=== PATIENT | female | born 1955 | race Caucasian/White ===

== ENCOUNTER 2017-02-21 15:50 | Emergency (ER) | payer MEDICAID, OTHER ==
[~2017-02-21] VITALS: Ht 157.5 cm; Wt 79.0 kg
[~2017-02-21 15:50] MED LIST: CIPR500T4 PO; DICL50 PO
[2017-02-21 16:04] VITALS: BP 127/80; PULSE 75; RESP 16; TEMP 98.7; O2SAT 97
[2017-02-21 17:44] VITALS: BP 170/99; PULSE 71; RESP 18; O2SAT 99
--- NOTE | 2017-02-21 18:10 | PD ---
HPI Chief Complaint: Abdominal Pain Time Seen by Provider: 17:54 Travel History International Travel<30 days: No Contact w/Intl Traveler<30days: No Traveled to known affect area: No History of Present Illness HPI 61-year-old female presents to emergency Department with complaint of left lower quadrant abdominal pain that started yesterday. After physical exam she states now her abdominal pain is on the right. She reports nausea without vomiting. Denies fevers. Denies diarrhea or constipation. Reports dysuria, urinary frequency. Denies hematuria. Denies history of abdominal surgeries. No known relieving or aggravating factors. Has not taken any medications or tried any treatment to alleviate her symptoms. Rates pain 10/10. Stabbing sensation. Reports frequent alcohol use. History of diabetes, hypertension, pancreatitis. No primary care provider. No known allergies. Has no other medical complaints. No other modifying factors or associated signs and symptoms. PFSH Past Medical History Depression: Yes Diabetes: Yes Patient Takes Glucophage: No Diminished Hearing: No Hypertension: Yes ?: Not : 2 Para: 2 Tubal Ligation: Yes Past Surgical History Hysterectomy: Yes Social History Alcohol Use: No Tobacco Use: No Substance Use: No Allergies-Medications (Allergen,Severity, Reaction): Coded Allergies: No Known Allergies (Unverified , 05/09/15) Reported Meds & Prescriptions Reported Meds & Active Scripts Active Bactrim DS (Sulfamethoxazole-Trimethoprim) 800-160 Mg Tab 1 Tab PO BID Voltaren (Diclofenac Sodium) 50 Mg Tabec 50 Mg PO TID Cipro (Ciprofloxacin HCl) 500 Mg Tab 500 Mg PO BID 7 Days Review of Systems Except as stated in HPI: all other systems reviewed are Neg Physical Exam Narrative GENERAL: Well-nourished, well-developed female patient, in no acute distress; afebrile; disheveled SKIN: Warm and dry. HEAD: Atraumatic. Normocephalic. EYES: Pupils equal and round. No scleral icterus. No injection or drainage. ENT: Mucosa pink and moist. Airway patent. NECK: Trachea midline. CARDIOVASCULAR: Regular rate and rhythm. No murmur appreciated. RESPIRATORY: No accessory muscle use. Clear to auscultation. Breath sounds equal bilaterally. GASTROINTESTINAL: Abdomen soft, tenderness on palpation to RLQ and LLQ, nondistended. Hepatic and splenic margins not palpable. Bowel sounds are active 4 quadrants. Nonrigid. No rebound tenderness. No guarding. BACK: No CVA tenderness. MUSCULOSKELETAL: No obvious deformities. No clubbing. No cyanosis. No edema. NEUROLOGICAL: Awake and alert. Oriented 3. No obvious cranial nerve deficits. Motor grossly within normal limits. Normal speech. PSYCHIATRIC: Appropriate mood and affect; insight and judgment normal. Data Data Last Documented VS Vital Signs Date Time Temp Pulse Resp B/P (MAP) Pulse Ox O2 Delivery O2 Flow Rate FiO2 02/21/17 23:24 02/21/17 21:03 92 Room Air 02/21/17 17:44 71 18 02/21/17 16:04 98.7 Orders Orders Complete Blood Count With Diff (02/21/17 18:03) Comprehensive Metabolic Panel (02/21/17 18:03) Lipase (02/21/17 18:03) Prothrombin Time / Inr (Pt) (02/21/17 18:03) Act Partial Throm Time (Ptt) (02/21/17 18:03) Urinalysis - C+S If Indicated (02/21/17 18:03) Iv Access Insert/Monitor (02/21/17 18:03) Ecg Monitoring (02/21/17 18:03) Oximetry (02/21/17 18:03) Ondansetron Inj (Zofran Inj) (02/21/17 18:15) Sodium Chloride 0.9% Flush (Ns Flush) (02/21/17 18:15) Ketorolac Inj (Toradol Inj) (02/21/17 18:15) Ct Abd/Pel W/O Iv Contrast (02/21/17 18:03) Ed Discharge Order (02/21/17 23:19) Labs Laboratory Tests Test 02/21/17 18:15 02/21/17 20:00 02/21/17 20:15 White Blood Count 7.2 TH/MM3 Red Blood Count 4.20 MIL/MM3 Hemoglobin 11.7 GM/DL Hematocrit 34.6 % Mean Corpuscular Volume 82.4 FL Mean Corpuscular Hemoglobin 27.8 PG Mean Corpuscular Hemoglobin Concent 33.8 % Red Cell Distribution Width 17.0 % Platelet Count 221 TH/MM3 Mean Platelet Volume 9.2 FL Neutrophils (%) (Auto) 53.7 % Lymphocytes (%) (Auto) 33.5 % Monocytes (%) (Auto) 8.7 % Eosinophils (%) (Auto) 2.7 % Basophils (%) (Auto) 1.4 % Neutrophils # (Auto) 3.9 TH/MM3 Lymphocytes # (Auto) 2.4 TH/MM3 Monocytes # (Auto) 0.6 TH/MM3 Eosinophils # (Auto) 0.2 TH/MM3 Basophils # (Auto) 0.1 TH/MM3 CBC Comment DIFF FINAL Differential Comment Urine Color YELLOW Urine Turbidity HAZY Urine pH 5.0 Urine Specific [place] 1.018 Urine Protein 30 mg/dL Urine Glucose (UA) NEG mg/dL Urine Ketones NEG mg/dL Urine Occult Blood NEG Urine Nitrite NEG Urine Bilirubin NEG Urine Urobilinogen LESS THAN 2.0 MG/DL Urine Leukocyte Esterase LARGE Urine RBC 3 /hpf Urine WBC 7 /hpf Urine Squamous Epithelial Cells 11 /hpf Urine Bacteria RARE /hpf Urine Mucus FEW /lpf Microscopic Urinalysis Comment CULT NOT INDICATED Prothrombin Time 10.4 SEC Prothromb Time International Ratio 1.0 RATIO Activated Partial Thromboplast Time 21.9 SEC Blood Urea Nitrogen 43 MG/DL Creatinine 2.34 MG/DL Random Glucose 129 MG/DL Total Protein 6.8 GM/DL Albumin 3.3 GM/DL Calcium Level 8.4 MG/DL Alkaline Phosphatase 89 U/L Aspartate Amino Transf (AST/SGOT) 13 U/L Alanine Aminotransferase (ALT/SGPT) 16 U/L Total Bilirubin 0.3 MG/DL Sodium Level 140 MEQ/L Potassium Level 4.6 MEQ/L Chloride Level 104 MEQ/L Carbon Dioxide Level 29.0 MEQ/L Anion Gap 7 MEQ/L Estimat Glomerular Filtration Rate 21 ML/MIN Lipase 111 U/L [facility] Medical Decision Making Medical Screen Exam Complete: Yes Emergency Medical Condition: Yes Medical Record Reviewed: Yes Differential Diagnosis Diverticulitis, appendicitis, urinary tract infection, kidney stones Narrative Course 61-year-old female presents with left lower quadrant and right lower quadrant abdominal pain. I discussed the patient with Dr. Ashby and he agrees with plan of care. IV, CBC, CMP, lipase, urinalysis, CT abdomen/pelvis, Toradol, Zofran ordered. 1900: Dr. Ashby assumed patient care at this time. See his note for final patient disposition. Scripts Sulfamethoxazole-Trimethoprim (Bactrim DS) 800-160 Mg Tab 1 TAB PO BID for Infection, #6 TAB 0 Refills Prov: Oleg Ashby MD 02/21/17 Cora Borrego Feb 21, 2017 18:10
[2017-02-21] MEDS ORDERED: SODIUM CHLORIDE 0.9% FLUSH 10 ML FLUSH IV FLUSH PRN (18:15)
[2017-02-21] MEDS ORDERED: ONDANSETRON HCL 4 MG/2 ML VIAL IVP ONE (18:15)
[2017-02-21] MEDS ORDERED: KETOROLAC TROMETHAMINE 30 MG/ML (IVP) VIAL IV PUSH ONE (18:15)
[2017-02-21 19:10] LABS: AUTOMATED NEUTROPHIL # 3.9 TH/MM3 (1.8-7.7); BASOPHIL # 0.1 TH/MM3 (0-0.2); BASOPHIL % 1.4 % (0.0-2.0); EOSINOPHIL # 0.2 TH/MM3 (0-0.4); EOSINOPHIL % 2.7 % (0.0-4.0); HEMATOCRIT 34.6 % (35.0-46.0); HEMOGLOBIN 11.7 GM/DL (11.6-15.3); LYMPH % 33.5 % (9.0-44.0); LYMPHOCYTE # 2.4 TH/MM3 (1.0-4.8); MEAN CELL VOLUME 82.4 FL (80.0-100.0); MEAN CORPUSCULAR HEMOGLOBIN 27.8 PG (27.0-34.0); MEAN CORPUSCULAR HGB CONC 33.8 % (32.0-36.0); MEAN PLATELET VOLUME 9.2 FL (7.0-11.0); MONO % 8.7 % (0.0-8.0); MONOCYTE # 0.6 TH/MM3 (0-0.9); NEUT % 53.7 % (16.0-70.0); PLATELET COUNT 221 TH/MM3 (150-450); WHITE BLOOD COUNT 7.2 TH/MM3 (4.0-11.0)
--- NOTE | 2017-02-21 19:33 | PD ---
Physical Exam Time Seen by Provider: 19:33 Narrative Please refer to previous providers documentation for details surrounding the patient's current visit. Data Data Last Documented VS Vital Signs Date Time Temp Pulse Resp B/P (MAP) Pulse Ox O2 Delivery O2 Flow Rate FiO2 02/21/17 23:24 02/21/17 21:03 92 Room Air 02/21/17 17:44 71 18 02/21/17 16:04 98.7 Orders Orders Complete Blood Count With Diff (02/21/17 18:03) Comprehensive Metabolic Panel (02/21/17 18:03) Lipase (02/21/17 18:03) Prothrombin Time / Inr (Pt) (02/21/17 18:03) Act Partial Throm Time (Ptt) (02/21/17 18:03) Urinalysis - C+S If Indicated (02/21/17 18:03) Iv Access Insert/Monitor (02/21/17 18:03) Ecg Monitoring (02/21/17 18:03) Oximetry (02/21/17 18:03) Ondansetron Inj (Zofran Inj) (02/21/17 18:15) Sodium Chloride 0.9% Flush (Ns Flush) (02/21/17 18:15) Ketorolac Inj (Toradol Inj) (02/21/17 18:15) Ct Abd/Pel W/O Iv Contrast (02/21/17 18:03) Ed Discharge Order (02/21/17 23:19) Labs Laboratory Tests Test 02/21/17 18:15 02/21/17 20:00 02/21/17 20:15 White Blood Count 7.2 TH/MM3 Red Blood Count 4.20 MIL/MM3 Hemoglobin 11.7 GM/DL Hematocrit 34.6 % Mean Corpuscular Volume 82.4 FL Mean Corpuscular Hemoglobin 27.8 PG Mean Corpuscular Hemoglobin Concent 33.8 % Red Cell Distribution Width 17.0 % Platelet Count 221 TH/MM3 Mean Platelet Volume 9.2 FL Neutrophils (%) (Auto) 53.7 % Lymphocytes (%) (Auto) 33.5 % Monocytes (%) (Auto) 8.7 % Eosinophils (%) (Auto) 2.7 % Basophils (%) (Auto) 1.4 % Neutrophils # (Auto) 3.9 TH/MM3 Lymphocytes # (Auto) 2.4 TH/MM3 Monocytes # (Auto) 0.6 TH/MM3 Eosinophils # (Auto) 0.2 TH/MM3 Basophils # (Auto) 0.1 TH/MM3 CBC Comment DIFF FINAL Differential Comment Urine Color YELLOW Urine Turbidity HAZY Urine pH 5.0 Urine Specific [place] 1.018 Urine Protein 30 mg/dL Urine Glucose (UA) NEG mg/dL Urine Ketones NEG mg/dL Urine Occult Blood NEG Urine Nitrite NEG Urine Bilirubin NEG Urine Urobilinogen LESS THAN 2.0 MG/DL Urine Leukocyte Esterase LARGE Urine RBC 3 /hpf Urine WBC 7 /hpf Urine Squamous Epithelial Cells 11 /hpf Urine Bacteria RARE /hpf Urine Mucus FEW /lpf Microscopic Urinalysis Comment CULT NOT INDICATED Prothrombin Time 10.4 SEC Prothromb Time International Ratio 1.0 RATIO Activated Partial Thromboplast Time 21.9 SEC Blood Urea Nitrogen 43 MG/DL Creatinine 2.34 MG/DL Random Glucose 129 MG/DL Total Protein 6.8 GM/DL Albumin 3.3 GM/DL Calcium Level 8.4 MG/DL Alkaline Phosphatase 89 U/L Aspartate Amino Transf (AST/SGOT) 13 U/L Alanine Aminotransferase (ALT/SGPT) 16 U/L Total Bilirubin 0.3 MG/DL Sodium Level 140 MEQ/L Potassium Level 4.6 MEQ/L Chloride Level 104 MEQ/L Carbon Dioxide Level 29.0 MEQ/L Anion Gap 7 MEQ/L Estimat Glomerular Filtration Rate 21 ML/MIN Lipase 111 U/L [facility] Medical Record Reviewed: Yes Supervised Visit with ALE: No Narrative Course Patient was signed out to me with lab work and CT imaging pending. She is lying in the bed comfortably. Scripts Sulfamethoxazole-Trimethoprim (Bactrim DS) 800-160 Mg Tab 1 TAB PO BID for Infection, #6 TAB 0 Refills Prov: Oleg Ashby MD 02/21/17 Condition: Stable Monica Aguilar FAIZAN Feb 21, 2017 19:33
[2017-02-21 21:03] VITALS: O2SAT 92
[2017-02-21 21:08] LABS: PROTHROMBIN TIME - PATIENT 10.4 SEC (9.8-11.6)
[2017-02-21 21:09] LABS: ALBUMIN 3.3 GM/DL (3.4-5.0); BLOOD UREA NITROGEN 43 MG/DL (7-18); CALCIUM 8.4 MG/DL (8.5-10.1); CHLORIDE 104 MEQ/L (98-107); CREATININE 2.34 MG/DL (0.50-1.00); GLOMERULAR FILTRATION RATE 21 ML/MIN (>89); GLUCOSE,RANDOM 129 MG/DL (74-106); LIPASE 111 U/L (73-393); SODIUM (NA) 140 MEQ/L (136-145)
[2017-02-21 21:10] LABS: ALT (GPT) 16 U/L (10-53); AST (GOT) 13 U/L (15-37)
[2017-02-21 21:12] LABS: ALKALINE PHOSPHATASE 89 U/L (45-117); TOTAL BILIRUBIN ADULT 0.3 MG/DL (0.2-1.0); TOTAL PROTEIN 6.8 GM/DL (6.4-8.2)
--- NOTE | 2017-02-21 22:13 | RADRPT ---
EXAM DATE/TIME: 02/21/2017 21:25 [place] COMPARISON: No previous studies available for comparison. INDICATIONS : Abdominal pain. ORAL CONTRAST: No oral contrast ingested. RADIATION DOSE: 11.59 CTDIvol (mGy) MEDICAL HISTORY : Hypertension. SURGICAL HISTORY : Tubal ligation. Hysterectomy. ENCOUNTER: Initial ACUITY: 1 day PAIN SCALE: 6/10 LOCATION: Abdomen TECHNIQUE: Volumetric scanning of the abdomen and pelvis was performed. Using automated exposure control and ad justment of the mA and/or kV according to patient size, radiation dose was kept as low as reasonably achievable to obtain optimal diagnostic quality images. DICOM format image data is available electro nically for review and comparison. FINDINGS: There is dependent atelectasis in the lungs. No acute findings in the lower, adrenals, spleen or panc reas. No calcified gallstones. There is a calcified 4.6 cm mass exophytic off the left kidney. Calcifications are mostly midline and curvilinear. 3.2 cm exophytic cyst lower pole right kidney. Small nonobstructing bilateral renal herman cifications. No free fluid. No bowel obstruction. No adenopathy. Previous bowel surgery in the right lower quadran t. Bladder unremarkable. No acute bony abnormalities. CONCLUSION: 1. Partially calcified 4.6 cm mass exophytic off upper pole left kidney. This is probably benign but could be further evaluated with MRI. 2. 3.2 cm cyst exophytic off lower pole right kidney. Nonobstructing small bilateral renal calcificat ions. 3. Postoperative bowel surgery in the right lower quadrant 4. No obstruction, free fluid or free air. Guanako Adams MD on February 21, 2017 at 22:06 Board Certified Radiologist. This report was verified electronically.
--- NOTE | 2017-02-21 22:16 | PD ---
Data Data Last Documented VS Vital Signs Date Time Temp Pulse Resp B/P (MAP) Pulse Ox O2 Delivery O2 Flow Rate FiO2 02/21/17 23:24 02/21/17 21:03 92 Room Air 02/21/17 17:44 71 18 02/21/17 16:04 98.7 Orders Orders Complete Blood Count With Diff (02/21/17 18:03) Comprehensive Metabolic Panel (02/21/17 18:03) Lipase (02/21/17 18:03) Prothrombin Time / Inr (Pt) (02/21/17 18:03) Act Partial Throm Time (Ptt) (02/21/17 18:03) Urinalysis - C+S If Indicated (02/21/17 18:03) Iv Access Insert/Monitor (02/21/17 18:03) Ecg Monitoring (02/21/17 18:03) Oximetry (02/21/17 18:03) Ondansetron Inj (Zofran Inj) (02/21/17 18:15) Sodium Chloride 0.9% Flush (Ns Flush) (02/21/17 18:15) Ketorolac Inj (Toradol Inj) (02/21/17 18:15) Ct Abd/Pel W/O Iv Contrast (02/21/17 18:03) Ed Discharge Order (02/21/17 23:19) Labs Laboratory Tests Test 02/21/17 18:15 02/21/17 20:00 02/21/17 20:15 White Blood Count 7.2 TH/MM3 Red Blood Count 4.20 MIL/MM3 Hemoglobin 11.7 GM/DL Hematocrit 34.6 % Mean Corpuscular Volume 82.4 FL Mean Corpuscular Hemoglobin 27.8 PG Mean Corpuscular Hemoglobin Concent 33.8 % Red Cell Distribution Width 17.0 % Platelet Count 221 TH/MM3 Mean Platelet Volume 9.2 FL Neutrophils (%) (Auto) 53.7 % Lymphocytes (%) (Auto) 33.5 % Monocytes (%) (Auto) 8.7 % Eosinophils (%) (Auto) 2.7 % Basophils (%) (Auto) 1.4 % Neutrophils # (Auto) 3.9 TH/MM3 Lymphocytes # (Auto) 2.4 TH/MM3 Monocytes # (Auto) 0.6 TH/MM3 Eosinophils # (Auto) 0.2 TH/MM3 Basophils # (Auto) 0.1 TH/MM3 CBC Comment DIFF FINAL Differential Comment Urine Color YELLOW Urine Turbidity HAZY Urine pH 5.0 Urine Specific [place] 1.018 Urine Protein 30 mg/dL Urine Glucose (UA) NEG mg/dL Urine Ketones NEG mg/dL Urine Occult Blood NEG Urine Nitrite NEG Urine Bilirubin NEG Urine Urobilinogen LESS THAN 2.0 MG/DL Urine Leukocyte Esterase LARGE Urine RBC 3 /hpf Urine WBC 7 /hpf Urine Squamous Epithelial Cells 11 /hpf Urine Bacteria RARE /hpf Urine Mucus FEW /lpf Microscopic Urinalysis Comment CULT NOT INDICATED Prothrombin Time 10.4 SEC Prothromb Time International Ratio 1.0 RATIO Activated Partial Thromboplast Time 21.9 SEC Blood Urea Nitrogen 43 MG/DL Creatinine 2.34 MG/DL Random Glucose 129 MG/DL Total Protein 6.8 GM/DL Albumin 3.3 GM/DL Calcium Level 8.4 MG/DL Alkaline Phosphatase 89 U/L Aspartate Amino Transf (AST/SGOT) 13 U/L Alanine Aminotransferase (ALT/SGPT) 16 U/L Total Bilirubin 0.3 MG/DL Sodium Level 140 MEQ/L Potassium Level 4.6 MEQ/L Chloride Level 104 MEQ/L Carbon Dioxide Level 29.0 MEQ/L Anion Gap 7 MEQ/L Estimat Glomerular Filtration Rate 21 ML/MIN Lipase 111 U/L [facility] Medical Record Reviewed: Yes Supervised Visit with ALE: Yes Narrative Course CBC & BMP Diagram 02/21/17 18:15 02/21/17 20:15 Total Protein 6.8, Albumin 3.3 L, Calcium Level 8.4 L, Alkaline Phosphatase 89, Aspartate Amino Transf (AST/SGOT) 13 L, Alanine Aminotransferase (ALT/SGPT) 16, Total Bilirubin 0.3 Urinalysis shows UTI Last Impressions Abdomen/Pelvis CT 02/21/17 1803 Signed Impressions: Service Date/Time: Tuesday, February 21, 2017 21:25 - CONCLUSION: 1. Partially calcified 4.6 cm mass exophytic off upper pole left kidney. This is probably benign but could be further evaluated with MRI. 2. 3.2 cm cyst exophytic off lower pole right kidney. Nonobstructing small bilateral renal calcifications. 3. Postoperative bowel surgery in the right lower quadrant 4. No obstruction, free fluid or free air. Guanako Adams MD At the time of reassessment, 11:10 PM patient reports no place to go having moved here from [place]. She states she is moving home in about 3 weeks. We discussed her diagnosis of UTI. Bactrim prescribed. Based on the workup done here, quite thorough, the patient has no medical or surgical emergency is safe for discharge. Vital Signs Date Time Temp Pulse Resp B/P (MAP) Pulse Ox O2 Delivery O2 Flow Rate FiO2 02/21/17 23:24 02/21/17 21:03 92 Room Air 02/21/17 17:44 71 18 170/99 (122) 99 Room Air 02/21/17 16:04 98.7 75 16 127/80 (96) 97 Room Air Diagnosis Primary Impression: Abdominal pain Qualified Codes: R10.9 - Unspecified abdominal pain Additional Impression: Cystitis Med/Other Pt SpecificInfo: Prescription(s) given Scripts Sulfamethoxazole-Trimethoprim (Bactrim DS) 800-160 Mg Tab 1 TAB PO BID for Infection, #6 TAB 0 Refills Prov: Oleg Ashby MD 02/21/17 Disposition: 01 DISCHARGE HOME Condition: Stable Oleg Ashby MD Feb 21, 2017 22:16
[2017-02-21 22:53] LABS: BACTERIA, URINE RARE /hpf; BILIRUBIN, URINE NEG (NEG); BLOOD, URINE NEG (NEG); GLUCOSE,URINE NEG (NEG); KETONE, URINE NEG (NEG); MUCUS URINE FEW /lpf (OCC); NITRITE,URINE NEG (NEG); SQUAMOUS EPITHELIAL CELL URINE 11 /hpf (0-5); URINE COLOR YELLOW (YELLW/STRAW); URINE LEUKOCYTE ESTERASE LARGE (NEG)
[2017-02-21] MEDS ORDERED: BACT800T5 PO (23:37)
== END 2017-02-21 23:51 | disposition home or self-care (01) ==
LOC: NEPD 15:50
DX: R10.32 Left lower quadrant pain (principal); N30.90 Cystitis, unspecified without hematuria; K85.90 Acute pancreatitis without necrosis or infection, unspecified; I10 Essential (primary) hypertension; E11.9 Type 2 diabetes mellitus without complications
CPT/HCPCS: 74176; 80053; 81001; 83690; 85025; 85610; 85730; 96374; 96375; 99285; J1885; J2405

== ENCOUNTER 2017-04-07 15:21 | Emergency (ER) | payer MEDICAID ==
[~2017-04-07 15:21] MED LIST changes: +BACT800T5 PO
[2017-04-07 15:27] VITALS: BP 156/87; PULSE 68; RESP 18; TEMP 98.3; O2SAT 99
--- NOTE | 2017-04-07 15:57 | PD ---
HPI Chief Complaint: Abdominal Pain Time Seen by Provider: 15:57 Travel History International Travel<30 days: No Contact w/Intl Traveler<30days: No Traveled to known affect area: No History of Present Illness HPI 61-year-old female presents emergency department with sudden onset abdominal pain yesterday with nausea, vomiting, and diarrhea. She now continues to have abdominal pain in the left lower quadrant. She is felt feverish but is unsure if she has had a fever. She denies urinary symptoms. She denies vaginal discharge. Patient has no history of appendicitis or gallbladder disease in the past. No previous history of diverticulitis. She states her pain is worsened today, and she continues to feel nauseous. She has no known drug allergies PFSH Past Medical History Depression: Yes Diabetes: Yes Patient Takes Glucophage: No Diminished Hearing: No Hypertension: Yes ?: Not : 2 Para: 2 Tubal Ligation: Yes Past Surgical History Hysterectomy: Yes Social History Alcohol Use: No Tobacco Use: No Substance Use: No Allergies-Medications (Allergen,Severity, Reaction): Coded Allergies: Iodinated Contrast- Oral and IV Dye (Verified Allergy, Severe, 04/07/17) No Known Allergies (Unverified Allergy, Unknown, 04/07/17) Reported Meds & Prescriptions Reported Meds & Active Scripts Active Review of Systems Except as stated in HPI: all other systems reviewed are Neg General / Constitutional: Positive: Fever, Chills Eyes: No: Visual changes HENT: No: Headaches, Vertigo, Lightheadedness, Sore Throat, Rhinitis, Congestion, Nosebleed, Neck Stiffness, Neck Pain, Dental Difficulties, Earache Cardiovascular: No: Chest Pain or Discomfort Respiratory: No: Cough, Shortness of Breath Gastrointestinal: Positive: Nausea, Vomiting, Diarrhea, Abdominal Pain, No: Constipation, Indigestion, Dysphagia, Loss of Appetite Genitourinary: No: Urgency, Frequency, Dysuria, Discharge Musculoskeletal: No: Pain Skin: No Rash Neurologic: No: Weakness Psychiatric: No: Depression Endocrine: No: Polydipsia Hematologic/Lymphatic: No: Easy Bruising Physical Exam Narrative GENERAL: Patient appears in mild to moderate distress SKIN: Warm and dry. Normal color. Normal turgor HEAD: Atraumatic. Normocephalic. EYES: Pupils equal and round. No scleral icterus. No injection or drainage. ENT: No nasal bleeding or discharge. Mucous membranes pink and moist. Pharynx is clear. NECK: Trachea midline. Supple and nontender CARDIOVASCULAR: Regular rate and rhythm. RESPIRATORY: No accessory muscle use. Clear to auscultation. Breath sounds equal bilaterally. GASTROINTESTINAL: Abdomen soft, mild to moderate point tenderness in the left lower quadrant with mild rebound, nondistended. Bowel sounds are somewhat diminished in all quadrants. Hepatic and splenic margins not palpable. No CVA tenderness. MUSCULOSKELETAL: Extremities without clubbing, cyanosis, or edema. No obvious deformities. NEUROLOGICAL: Awake and alert. No obvious cranial nerve deficits. Motor grossly within normal limits. Five out of 5 muscle strength in the arms and legs. Normal speech. PSYCHIATRIC: Appropriate mood and affect; insight and judgment normal. Data Data Last Documented VS Vital Signs Date Time Temp Pulse Resp B/P (MAP) Pulse Ox O2 Delivery O2 Flow Rate FiO2 04/07/17 18:01 96 Room Air 04/07/17 17:57 98.4 67 20 Orders Orders Complete Blood Count With Diff (04/07/17 16:06) Comprehensive Metabolic Panel (04/07/17 16:06) Lipase (04/07/17 16:06) Lactic Acid (04/07/17 16:06) Prothrombin Time / Inr (Pt) (04/07/17 16:06) Act Partial Throm Time (Ptt) (04/07/17 16:06) Urinalysis - C+S If Indicated (04/07/17 16:06) Iv Access Insert/Monitor (04/07/17 16:06) Ecg Monitoring (04/07/17 16:06) Oximetry (04/07/17 16:06) Morphine Inj (Morphine Inj) (04/07/17 16:15) Ondansetron Inj (Zofran Inj) (04/07/17 16:15) Sodium Chlor 0.9% 1000 Ml Inj (Ns 1000 M (04/07/17 16:06) Sodium Chloride 0.9% Flush (Ns Flush) (04/07/17 16:15) Ct Abd/Pel W/O Iv Contrast (04/07/17 18:26) Labs Laboratory Tests Test 04/07/17 16:50 White Blood Count 6.4 TH/MM3 Red Blood Count 3.91 MIL/MM3 Hemoglobin 10.9 GM/DL Hematocrit 31.9 % Mean Corpuscular Volume 81.6 FL Mean Corpuscular Hemoglobin 27.8 PG Mean Corpuscular Hemoglobin Concent 34.1 % Red Cell Distribution Width 15.1 % Platelet Count 165 TH/MM3 Mean Platelet Volume 9.0 FL Neutrophils (%) (Auto) 57.4 % Lymphocytes (%) (Auto) 33.5 % Monocytes (%) (Auto) 6.5 % Eosinophils (%) (Auto) 2.0 % Basophils (%) (Auto) 0.6 % Neutrophils # (Auto) 3.7 TH/MM3 Lymphocytes # (Auto) 2.2 TH/MM3 Monocytes # (Auto) 0.4 TH/MM3 Eosinophils # (Auto) 0.1 TH/MM3 Basophils # (Auto) 0.0 TH/MM3 CBC Comment DIFF FINAL Differential Comment Prothrombin Time 10.4 SEC Prothromb Time International Ratio 1.0 RATIO Activated Partial Thromboplast Time 22.9 SEC Urine Color YELLOW Urine Turbidity HAZY Urine pH 5.0 Urine Specific [place] 1.018 Urine Protein 30 mg/dL Urine Glucose (UA) NEG mg/dL Urine Ketones NEG mg/dL Urine Occult Blood NEG Urine Nitrite NEG Urine Bilirubin NEG Urine Urobilinogen LESS THAN 2.0 MG/DL Urine Leukocyte Esterase MOD Urine RBC 2 /hpf Urine WBC 7 /hpf Urine Squamous Epithelial Cells 6 /hpf Urine Amorphous Sediment RARE Urine Bacteria RARE /hpf Urine Mucus FEW /lpf Microscopic Urinalysis Comment CULT NOT INDICATED Blood Urea Nitrogen 28 MG/DL Creatinine 1.18 MG/DL Random Glucose 78 MG/DL Total Protein 6.9 GM/DL Albumin 3.4 GM/DL Calcium Level 8.3 MG/DL Alkaline Phosphatase 78 U/L Aspartate Amino Transf (AST/SGOT) 13 U/L Alanine Aminotransferase (ALT/SGPT) 14 U/L Total Bilirubin 0.3 MG/DL Sodium Level 141 MEQ/L Potassium Level 3.8 MEQ/L Chloride Level 108 MEQ/L Carbon Dioxide Level 25.7 MEQ/L Anion Gap 7 MEQ/L Estimat Glomerular Filtration Rate 46 ML/MIN Lactic Acid Level 0.9 mmol/L Lipase 88 U/L [facility] Medical Decision Making Medical Screen Exam Complete: Yes Emergency Medical Condition: Yes Medical Record Reviewed: Yes Differential Diagnosis Gastroenteritis. Diverticulitis. Constipation. Colitis. Narrative Course Patient is medically stable at time of exam. IV access is obtained and labs ordered including CBC, CMP, lipase, urinalysis. And lactic acid. Patient is given 1000 mL's normal saline bolus. Patient is given 4 mg Zofran IV as well as [address] of the abdomen and pelvis with IV contrast is ordered. CBC is unremarkable except for hemoglobin of 10.9, hematocrit 31.9. Coagulation studies are normal. Chemistries show chloride of 108, BUN 28, creatinine of 1.18, GFR is 46. Lactic acid is normal at 0.9. Calcium is 8.3, AST is 13. Urinalysis is unremarkable except for 30 protein, but no signs of acute infection. Care of patient turned over to Antwan Yanez at [address] reading pending. Final disposition will be determined by him. Condition: Stable Trent Weber Apr 07, 2017 15:57
[2017-04-07] MEDS ORDERED: SODIUM CHLOR 0.9% 1000 ML INJ 1,000 ML IV SCH (16:06)
[2017-04-07] MEDS ORDERED: SODIUM CHLORIDE 0.9% FLUSH 10 ML FLUSH IV FLUSH PRN (16:15)
[2017-04-07] MEDS ORDERED: MORPHINE SULFATE 4 MG/ML INJ IV PUSH ONE (16:15)
[2017-04-07] MEDS ORDERED: ONDANSETRON HCL 4 MG/2 ML VIAL IVP ONE (16:15)
[2017-04-07 17:14] LABS: AUTOMATED NEUTROPHIL # 3.7 TH/MM3 (1.8-7.7); BASOPHIL % 0.6 % (0.0-2.0); EOSINOPHIL # 0.1 TH/MM3 (0-0.4); HEMATOCRIT 31.9 % (35.0-46.0); HEMOGLOBIN 10.9 GM/DL (11.6-15.3); LYMPH % 33.5 % (9.0-44.0); LYMPHOCYTE # 2.2 TH/MM3 (1.0-4.8); MEAN CELL VOLUME 81.6 FL (80.0-100.0); MEAN CORPUSCULAR HEMOGLOBIN 27.8 PG (27.0-34.0); MEAN CORPUSCULAR HGB CONC 34.1 % (32.0-36.0); MONO % 6.5 % (0.0-8.0); MONOCYTE # 0.4 TH/MM3 (0-0.9); NEUT % 57.4 % (16.0-70.0); PLATELET COUNT 165 TH/MM3 (150-450); RED BLOOD COUNT 3.91 MIL/MM3 (4.00-5.30); RED CELL DISTRIBUTION WIDTH 15.1 % (11.6-17.2); WHITE BLOOD COUNT 6.4 TH/MM3 (4.0-11.0)
[2017-04-07 17:22] LABS: AMORPHOUS SEDIMENT, URINE RARE; BACTERIA, URINE RARE /hpf; BILIRUBIN, URINE NEG (NEG); BLOOD, URINE NEG (NEG); GLUCOSE,URINE NEG (NEG); KETONE, URINE NEG (NEG); MUCUS URINE FEW /lpf (OCC); NITRITE,URINE NEG (NEG); SQUAMOUS EPITHELIAL CELL URINE 6 /hpf (0-5); URINE COLOR YELLOW (YELLW/STRAW); URINE LEUKOCYTE ESTERASE MOD (NEG)
[2017-04-07 17:26] LABS: PROTHROMBIN TIME - PATIENT 10.4 SEC (9.8-11.6)
[2017-04-07 17:31] LABS: ALBUMIN 3.4 GM/DL (3.4-5.0); ALT (GPT) 14 U/L (10-53); AST (GOT) 13 U/L (15-37); BICARBONATE 25.7 MEQ/L (21.0-32.0); BLOOD UREA NITROGEN 28 MG/DL (7-18); CALCIUM 8.3 MG/DL (8.5-10.1); CHLORIDE 108 MEQ/L (98-107); CREATININE 1.18 MG/DL (0.50-1.00); GLOMERULAR FILTRATION RATE 46 ML/MIN (>89); GLUCOSE,RANDOM 78 MG/DL (74-106); SODIUM (NA) 141 MEQ/L (136-145)
[2017-04-07 17:33] LABS: ALKALINE PHOSPHATASE 78 U/L (45-117); TOTAL BILIRUBIN ADULT 0.3 MG/DL (0.2-1.0); TOTAL PROTEIN 6.9 GM/DL (6.4-8.2)
[2017-04-07 17:57] VITALS: BP 174/98; PULSE 67; RESP 20; TEMP 98.4; O2SAT 96
[2017-04-07 18:01] VITALS: O2SAT 96
--- NOTE | 2017-04-07 19:02 | RADRPT ---
EXAM DATE/TIME: 04/07/2017 18:30 [facility] COMPARISON: CT ABDOMEN & PELVIS W/O CONTRAST, February 21, 2017, 21:25. INDICATIONS : Right lower abdomen pain today. ORAL CONTRAST: No oral contrast ingested. RADIATION DOSE: 11.97 CTDIvol (mGy) MEDICAL HISTORY : Hypertension. diabetes SURGICAL HISTORY : Hysterectomy. Tubal ligation. ENCOUNTER: Initial ACUITY: 1 day PAIN SCALE: 7/10 LOCATION: Right lower quadrant TECHNIQUE: Volumetric scanning of the abdomen and pelvis was performed. Using automated exposure control and ad justment of the mA and/or kV according to patient size, radiation dose was kept as low as reasonably achievable to obtain optimal diagnostic quality images. DICOM format image data is available electro nically for review and comparison. FINDINGS: LOWER LUNGS: The visualized lower lungs are clear. LIVER: Homogeneous density without lesion. There is no dilation of the biliary tree. No calcified gallston es. SPLEEN: Granulomas calcifications. No definite mass. Normal size. PANCREAS: Within normal limits. KIDNEYS: Stable with calcified 4.7 cm mass involving the lateral apex of the left kidney. Exophytic cyst invol ving the lower pole cortex of the right kidney. Small nonobstructing collecting system stones bilater ally. ADRENAL GLANDS: Within normal limits. VASCULAR: There is no aortic aneurysm. BOWEL/MESENTERY: Right lower quadrant david and likely anastomoses. No abnormally dilated bowel. No wall thickening or focal inflammatory changes identified. ABDOMINAL WALL: Within normal limits. RETROPERITONEUM: There is no lymphadenopathy. BLADDER: No wall thickening or mass. REPRODUCTIVE: Within normal limits. INGUINAL: There is no lymphadenopathy or hernia. MUSCULOSKELETAL: Within normal limits for patient age. CONCLUSION: Stable CT appearance of the abdomen and pelvis. No acute findings. Follow up evaluation of the renal masses again recommended. Brendan Sanderson MD on April 07, 2017 at 18:56 Board Certified Radiologist. This report was verified electronically.
[2017-04-07] MEDS ORDERED: ZOFR4TAB3 SL (19:32)
[2017-04-07] MEDS ORDERED: LEVS0.124 SL (19:32)
--- NOTE | 2017-04-07 19:38 | PD ---
Physical Exam Date Seen by Provider: Apr 07, 2017 Time Seen by Provider: 19:34 Narrative GENERAL: This is a well-nourished, well-developed patient, in no apparent distress. Patient is happy and hungry. SKIN: No rashes, ecchymoses or lesions. Warm and dry. HEAD: Atraumatic. Normocephalic. EYES: PERRL, EOMI, no discharge or injection. No scleral icterus. EARS: Clear NOSE: Nasal turbinates appear normal. THROAT: Mucosa pink and moist. Airway patent. NECK: Trachea midline. supple, moves head freely. LUNGS: Clear to auscultation. CV: Regular in rhythm. ABDOMEN: Soft nontender. Obese. EXT: No clubbing cyanosis or edema. Data Data Last Documented VS Vital Signs Date Time Temp Pulse Resp B/P (MAP) Pulse Ox O2 Delivery O2 Flow Rate FiO2 04/07/17 18:01 96 Room Air 04/07/17 17:57 98.4 67 20 Orders Orders Complete Blood Count With Diff (04/07/17 16:06) Comprehensive Metabolic Panel (04/07/17 16:06) Lipase (04/07/17 16:06) Lactic Acid (04/07/17 16:06) Prothrombin Time / Inr (Pt) (04/07/17 16:06) Act Partial Throm Time (Ptt) (04/07/17 16:06) Urinalysis - C+S If Indicated (04/07/17 16:06) Iv Access Insert/Monitor (04/07/17 16:06) Ecg Monitoring (04/07/17 16:06) Oximetry (04/07/17 16:06) Morphine Inj (Morphine Inj) (04/07/17 16:15) Ondansetron Inj (Zofran Inj) (04/07/17 16:15) Sodium Chlor 0.9% 1000 Ml Inj (Ns 1000 M (04/07/17 16:06) Sodium Chloride 0.9% Flush (Ns Flush) (04/07/17 16:15) Ct Abd/Pel W/O Iv Contrast (04/07/17 18:26) Sodium Chlor 0.9% 1000 Ml Inj (Ns 1000 M (04/07/17 19:45) Acetaminophen (Tylenol) (04/07/17 19:45) Ed Discharge Order (04/07/17 19:34) Labs Laboratory Tests Test 04/07/17 16:50 White Blood Count 6.4 TH/MM3 Red Blood Count 3.91 MIL/MM3 Hemoglobin 10.9 GM/DL Hematocrit 31.9 % Mean Corpuscular Volume 81.6 FL Mean Corpuscular Hemoglobin 27.8 PG Mean Corpuscular Hemoglobin Concent 34.1 % Red Cell Distribution Width 15.1 % Platelet Count 165 TH/MM3 Mean Platelet Volume 9.0 FL Neutrophils (%) (Auto) 57.4 % Lymphocytes (%) (Auto) 33.5 % Monocytes (%) (Auto) 6.5 % Eosinophils (%) (Auto) 2.0 % Basophils (%) (Auto) 0.6 % Neutrophils # (Auto) 3.7 TH/MM3 Lymphocytes # (Auto) 2.2 TH/MM3 Monocytes # (Auto) 0.4 TH/MM3 Eosinophils # (Auto) 0.1 TH/MM3 Basophils # (Auto) 0.0 TH/MM3 CBC Comment DIFF FINAL Differential Comment Prothrombin Time 10.4 SEC Prothromb Time International Ratio 1.0 RATIO Activated Partial Thromboplast Time 22.9 SEC Urine Color YELLOW Urine Turbidity HAZY Urine pH 5.0 Urine Specific [place] [facility] 1.018 Urine Protein 30 mg/dL Urine Glucose (UA) NEG mg/dL Urine Ketones NEG mg/dL Urine Occult Blood NEG Urine Nitrite NEG Urine Bilirubin NEG Urine Urobilinogen LESS THAN 2.0 MG/DL Urine Leukocyte Esterase MOD Urine RBC 2 /hpf Urine WBC 7 /hpf Urine Squamous Epithelial Cells 6 /hpf Urine Amorphous Sediment RARE Urine Bacteria RARE /hpf Urine Mucus FEW /lpf Microscopic Urinalysis Comment CULT NOT INDICATED Blood Urea Nitrogen 28 MG/DL Creatinine 1.18 MG/DL Random Glucose 78 MG/DL Total Protein 6.9 GM/DL Albumin 3.4 GM/DL Calcium Level 8.3 MG/DL Alkaline Phosphatase 78 U/L Aspartate Amino Transf (AST/SGOT) 13 U/L Alanine Aminotransferase (ALT/SGPT) 14 U/L Total Bilirubin 0.3 MG/DL Sodium Level 141 MEQ/L Potassium Level 3.8 MEQ/L Chloride Level 108 MEQ/L Carbon Dioxide Level 25.7 MEQ/L Anion Gap 7 MEQ/L Estimat Glomerular Filtration Rate 46 ML/MIN Lactic Acid Level 0.9 mmol/L Lipase 88 U/L [facility] Medical Record Reviewed: Yes Supervised Visit with ALE: Yes Interpretation(s) CBC & BMP Diagram 04/07/17 16:50 Total Protein 6.9, Albumin 3.4, Calcium Level 8.3 L, Alkaline Phosphatase 78, Aspartate Amino Transf (AST/SGOT) 13 L, Alanine Aminotransferase (ALT/SGPT) 14, Total Bilirubin 0.3 Last 24 hours Impressions Abdomen/Pelvis CT 04/07/17 1826 Signed Impressions: Service Date/Time: Friday, April 07, 2017 18:30 - CONCLUSION: Stable CT appearance of the abdomen and pelvis. No acute findings. Follow up evaluation of the renal masses again recommended. Brendan Sanderson MD Differential Diagnosis MDM: High Differential diagnoses: Acute appendicitis, acute pancreatitis, diverticulitis, hepatitis, colitis, ischemic bowel, bowel instruction, nonspecific abdominal pain, gastroparesis, electrolyte abnormality, dehydration, drug-seeking, malingering Narrative Course IV access has been obtained. Patient was given a liter bolus of saline. Laboratory tests including CBC, chemistry and CT of the abdomen have been formed. I reviewed the patient's laboratory testing CAT scan I am not found any acute emergent condition. Patient is hungry and has been eating crackers and drinking Gatorade. Patient is medically stable for discharge. This is abdominal pain, vomiting, diarrhea Diagnosis Primary Impression: Abdominal pain Additional Impression: Vomiting and diarrhea Patient Instructions: General Instructions Additional Instruction: Rest. Increase fluids. Medications as directed. Follow-up medical doctor next 3-5 days. Return to the ER if any problems. Med/Other Pt SpecificInfo: Prescription(s) given Scripts Hyoscyamine Odt (Levsin-SL) 0.125 Mg Subl 0.25 MG SL Q6H for Gastrointestinal disorders, #10 TAB.SL 0 Refills Prov: Lc Olivera MD 04/07/17 Ondansetron Odt (Zofran Odt) 4 Mg Tab 4 MG SL Q6HR Y for Nausea/Vomiting, #10 TAB 0 Refills Prov: Lc Olivera MD 04/07/17 Disposition: 01 DISCHARGE HOME Condition: Stable Guanako Soto Apr 07, 2017 19:38
[2017-04-07] MEDS ORDERED: ACETAMINOPHEN 500 MG CPLT PO ONE (19:45)
[2017-04-07] MEDS ORDERED: SODIUM CHLOR 0.9% 1000 ML INJ 1,000 ML IV ONE (19:45)
== END 2017-04-07 20:57 | disposition home or self-care (01) ==
LOC: NEPD 15:21
DX: R10.32 Left lower quadrant pain (principal); R19.7 Diarrhea, unspecified; R11.2 Nausea with vomiting, unspecified; E11.9 Type 2 diabetes mellitus without complications; I10 Essential (primary) hypertension
CPT/HCPCS: 74176; 80053; 81001; 83605; 83690; 85025; 85610; 85730; 96361; 96374; 96375; 99284; J2270; J2405; J7030

== ENCOUNTER 2017-04-10 16:18 | Observation (INO) | payer MEDICAID ==
[~2017-04-10] VITALS: Ht 157.5 cm; Wt 78.0 kg
[~2017-04-10 16:18] MED LIST changes: -BACT800T5 PO; -CIPR500T4 PO; -DICL50 PO; +LEVS0.124 SL; +ZOFR4TAB3 SL
[2017-04-10 16:37] VITALS: BP 144/75; PULSE 70; RESP 18; TEMP 99.1; O2SAT 97
[2017-04-10 17:02] LABS: AUTOMATED NEUTROPHIL # 3.5 TH/MM3 (1.8-7.7); BASOPHIL % 0.8 % (0.0-2.0); EOSINOPHIL # 0.1 TH/MM3 (0-0.4); EOSINOPHIL % 1.7 % (0.0-4.0); HEMATOCRIT 31.6 % (35.0-46.0); HEMOGLOBIN 10.4 GM/DL (11.6-15.3); LYMPH % 26.9 % (9.0-44.0); LYMPHOCYTE # 1.5 TH/MM3 (1.0-4.8); MEAN CELL VOLUME 82.2 FL (80.0-100.0); MEAN CORPUSCULAR HGB CONC 32.9 % (32.0-36.0); MEAN PLATELET VOLUME 8.8 FL (7.0-11.0); MONO % 6.6 % (0.0-8.0); MONOCYTE # 0.4 TH/MM3 (0-0.9); PLATELET COUNT 154 TH/MM3 (150-450); RED BLOOD COUNT 3.85 MIL/MM3 (4.00-5.30); RED CELL DISTRIBUTION WIDTH 15.3 % (11.6-17.2); WHITE BLOOD COUNT 5.5 TH/MM3 (4.0-11.0)
--- NOTE | 2017-04-10 17:03 | RADRPT ---
EXAM DATE/TIME: 04/10/2017 16:52 [facility] COMPARISON: No previous studies available for comparison. INDICATIONS : Chest pain MEDICAL HISTORY : Hypertension. diabetes SURGICAL HISTORY : Hysterectomy. Tubal ligation ENCOUNTER: Initial ACUITY: 1 day PAIN SCORE: 3/10 LOCATION: Bilateral chest FINDINGS: PA and lateral views of the chest demonstrate the lungs to be symmetrically aerated without evidence of mass, infiltrate or effusion. The cardiomediastinal contours are unremarkable. Moderate degenera tive changes in the thoracic spine with anterior and right lateral paravertebral ossification. CONCLUSION: The lungs are clear. Eulogio Duke MD on April 10, 2017 at 17:01 Board Certified Radiologist. This report was verified electronically.
[2017-04-10 17:15] LABS: BICARBONATE 28.8 MEQ/L (21.0-32.0); BLOOD UREA NITROGEN 26 MG/DL (7-18); CALCIUM 8.6 MG/DL (8.5-10.1); CHLORIDE 109 MEQ/L (98-107); CREATININE 1.38 MG/DL (0.50-1.00); GLOMERULAR FILTRATION RATE 39 ML/MIN (>89); GLUCOSE,RANDOM 123 MG/DL (74-106); SODIUM (NA) 144 MEQ/L (136-145)
[2017-04-10 17:19] LABS: TROPONIN I LESS THAN 0.02 NG/ML (0.02-0.05)
[2017-04-10 17:37] VITALS: BP 168/101; PULSE 72; RESP 18; O2SAT 97
--- NOTE | 2017-04-10 18:11 | PD ---
HPI Chief Complaint: Chest Pain Time Seen by Provider: 17:34 Travel History International Travel<30 days: No Contact w/Intl Traveler<30days: No Traveled to known affect area: No History of Present Illness HPI 61-year-old female came to the emergency room with history of chest pain since this morning. Patient says the pain is on and off. Patient has been drinking 6 beers today. She drinks on a regular basis and has a potential withdrawal she said. Patient is also homeless. She points the pain to the center of her chest. Nonradiating and no aggravating or relieving factors identified. Vital signs are stable. No history of coronary artery disease as far she knows. Patient is not a smoker. Vital signs are stable. [facility] Past Medical History Narrative Medical List of her past medical, surgical, social and family history is reviewed from the nursing note. Depression: Yes Diabetes: Yes Patient Takes Glucophage: Yes Diminished Hearing: No Hypertension: Yes Tetanus Vaccination: < 5 Years Influenza Vaccination: Yes : 2 Para: 2 Tubal Ligation: Yes Past Surgical History Hysterectomy: Yes Social History Alcohol Use: Yes (BEER DAILY) Tobacco Use: No Substance Use: No Allergies-Medications (Allergen,Severity, Reaction): Coded Allergies: Iodinated Contrast- Oral and IV Dye (Verified Allergy, Severe, 04/10/17) Comments List of her allergies reviewed from the nursing note Reported Meds & Prescriptions Reported Meds & Active Scripts Active Reported Hyoscyamine (Hyoscyamine Sulfate) 0.125 Mg Tab 0.125 Mg SL Q6H Ondansetron Odt 4 Mg Tab 4 Mg SL Q6HR PRN Narrative Medication List of her home medications reviewed from the nursing note. Review of Systems Except as stated in HPI: all other systems reviewed are Neg Cardiovascular: Positive: Chest Pain or Discomfort Physical Exam Narrative GENERAL: Awake, alert, disheveled, no obvious distress SKIN: Focused skin assessment warm/dry. HEAD: Atraumatic. Normocephalic. EYES: Pupils equal and round. No scleral icterus. No injection or drainage. ENT: No nasal bleeding or discharge. Mucous membranes pink and moist. NECK: Trachea midline. No JVD. CARDIOVASCULAR: Regular rate and rhythm. No murmur appreciated. RESPIRATORY: No accessory muscle use. Clear to auscultation. Breath sounds equal bilaterally. GASTROINTESTINAL: Abdomen soft, non-tender, nondistended. Hepatic and splenic margins not palpable. MUSCULOSKELETAL: No obvious deformities. No clubbing. No cyanosis. No edema. NEUROLOGICAL: Awake and alert. No obvious cranial nerve deficits. Motor grossly within normal limits. Normal speech. PSYCHIATRIC: Appropriate mood and affect; insight and judgment normal. Data Data Last Documented VS Orders Orders Electrocardiogram (04/10/17 16:39) Complete Blood Count With Diff (04/10/17 16:39) Basic Metabolic Panel (Bmp) (04/10/17 16:39) Ckmb (Isoenzyme) Profile (04/10/17 16:39) Troponin I (04/10/17 16:39) Iv Access Insert/Monitor (04/10/17 16:39) Chest, Pa & Lat (04/10/17 16:39) Admit Order (Ed Use Only) (04/10/17 18:07) Labs Laboratory Tests Test 04/10/17 16:40 White Blood Count 5.5 TH/MM3 Red Blood Count 3.85 MIL/MM3 Hemoglobin 10.4 GM/DL Hematocrit 31.6 % Mean Corpuscular Volume 82.2 FL Mean Corpuscular Hemoglobin 27.0 PG Mean Corpuscular Hemoglobin Concent 32.9 % Red Cell Distribution Width 15.3 % Platelet Count 154 TH/MM3 Mean Platelet Volume 8.8 FL Neutrophils (%) (Auto) 64.0 % Lymphocytes (%) (Auto) 26.9 % Monocytes (%) (Auto) 6.6 % Eosinophils (%) (Auto) 1.7 % Basophils (%) (Auto) 0.8 % Neutrophils # (Auto) 3.5 TH/MM3 Lymphocytes # (Auto) 1.5 TH/MM3 Monocytes # (Auto) 0.4 TH/MM3 Eosinophils # (Auto) 0.1 TH/MM3 Basophils # (Auto) 0.0 TH/MM3 CBC Comment DIFF FINAL Differential Comment Blood Urea Nitrogen 26 MG/DL Creatinine 1.38 MG/DL Random Glucose 123 MG/DL Calcium Level 8.6 MG/DL Sodium Level 144 MEQ/L Potassium Level 4.0 MEQ/L Chloride Level 109 MEQ/L Carbon Dioxide Level 28.8 MEQ/L Anion Gap 6 MEQ/L Estimat Glomerular Filtration Rate 39 ML/MIN Total Creatine Kinase 69 U/L Troponin I LESS THAN 0.02 NG/ML MDM Medical Decision Making Medical Screen Exam Complete: Yes Emergency Medical Condition: Yes Medical Record Reviewed: Yes Differential Diagnosis ACS, non-STEMI Narrative Course 6:10 PM blood test results of back and within normal limits. Patient admitted that she has a potential of withdrawal if she does not drink. I have admitted the patient medically to be ruled out. Procedures EKG Prior to Arrival: No Diagnosis Primary Impression: Chest pain Qualified Codes: R07.9 - Chest pain, unspecified Admitting Information Admitting Physician Requests: Observation Kishan Luz MD Apr 10, 2017 18:11
[2017-04-10] MEDS ORDERED: NALOXONE HCL 0.4 MG/ML AMP IV PUSH PRN (18:15)
[2017-04-10] MEDS ORDERED: SODIUM CHLORIDE 0.9% FLUSH 10 ML FLUSH IV FLUSH PRN (18:15)
[2017-04-10] MEDS ORDERED: ASPIRIN 81 MG CHEW TAB CHEW ONE (18:15)
--- NOTE | 2017-04-10 18:23 | HHI.HP ---
[facility] Unknown Admission Diagnosis chest pain, rule out ACS, chronic alcoholic Diagnoses: (1) Chest pain Chief Complaint: Chest pain Travel History International Travel<30 Days: No Contact w/Intl Traveler <30 Da: No Traveled to Known Affected Are: No History of Present Illness This is a 61-year-old female with past medical history significant for hypertension, diabetes, hyperlipidemia, pancreatitis, ADD, and alcohol abuse. Patient presented to emergency department with complaints of chest pain which began this morning and since resolved. Reports she had chest pain that began around 3pm this afternoon after arguing with her boyfriend. Pain was located in the center of chest with nonradiating, no aggravating or alleviating factors. Pain was a of stabbing consistency rated it 10/10. Repots that that the pain lasted 20min was relieved without intervention. Denies any clammy or sweating feeling during episode. She also repots some SOB resolved with episode of chest pain which resolved when pain resolved. Chest pain free now with no SOB. She is a daily alcohol drinker and reports she has been trying to cut back on alcohol as she regularly drinks beer and has began to drinks Dr. Pepper daily. She continues to drink about 5 beers a day, last drink was earlier today. She has been through alcohol withdrawals in the past and is aware of symptoms. She tells me that she takes Norvasc 10 mg for her blood pressure, nothing for her cholesterol. She uses the [facility] in [place]. She also states that she has to take something for her pancreas every day, not sure of the medication or dosage. She is currently homeless and tells me that she is unable to keep a blister of her medications with her. She then goes on to tell me that [facility] members told her that if she did not stop quitting reading her bible they were going to kill her. She reports that she met them in [facility]. She feels that the stress of this is causing her chest pain. She denies any prior fevers, chills, nausea, vomiting, diarrhea, headaches, shortness of breath, cough, dyspnea on exertion, black or bloody stools. Review of Systems Except as stated in HPI: all other systems reviewed are Neg Past Family Social History Past Medical History HTN DM HLD Pancreatitis ADD Past Surgical History Tubal ligation Colon resection Reported Medications Reported Meds & Active Scripts Active No Active Prescriptions or Reported Medications Allergies: Coded Allergies: Iodinated Contrast- Oral and IV Dye (Verified Allergy, Severe, 04/10/17) Active Ordered Medications Current Medications Medications (Trade) Dose Ordered Sig/[place] Route Start Time Stop Time Status Last Admin (NS Flush) 2 ml UNSCH PRN IV FLUSH 04/10/17 18:15 UNV (NS Flush) 2 ml BID IV FLUSH 04/10/17 21:00 UNV (Narcan Inj) 0.4 mg UNSCH PRN IV PUSH 04/10/17 18:15 UNV (Ecotrin Ec) 325 mg DAILY PO 04/11/17 09:00 UNV (Aspirin Chew) 324 mg ONCE ONCE CHEW 04/10/17 18:15 04/10/17 18:16 UNV (Romazicon Inj) 0.2 mg Q1M PRN IV PUSH 04/10/17 18:45 UNV (Ativan) 1 mg Q4H PRN PO 04/10/17 18:45 UNV (Ativan Inj) 1 mg Q4H PRN IV PUSH 04/10/17 18:45 UNV (Ativan) 2 mg Q2H PRN PO 04/10/17 18:45 UNV (Ativan Inj) 2 mg Q2H PRN IV PUSH 04/10/17 18:45 UNV (Ativan Inj) 2 mg Q1H PRN IV PUSH 04/10/17 18:45 UNV (Ativan Inj) 2 mg Q15M PRN IV PUSH 04/10/17 18:45 UNV Family History Strong family history of DM and HTN Father: cancer No ND history Social History Tobacco use: quit 10 years ago, use to smoke 5 PPD Alcohol use: Drinks 5 beers a day, last drink earlier today. Illicit drug use: Denies Homeless, originally from [place]. Physical Exam Vital Signs Vital Signs Date Time Temp Pulse Resp B/P (MAP) Pulse Ox O2 Delivery O2 Flow Rate FiO2 04/10/17 17:37 72 18 168/101 (123) 97 Room Air 04/10/17 17:35 70 18 97 Room Air 04/10/17 16:37 99.1 70 18 144/75 (98) 97 Physical Exam GENERAL: This is a well-nourished, well-developed patient, obese female resting comfortably in stretcher. SKIN: No rashes, ecchymoses or lesions. Cool and dry. Face and chest visibly red from what appears to be sunburn. HEAD: Atraumatic. Normocephalic. EYES: Pupils equal round and reactive. No scleral icterus. No injection or drainage. ENT: Nose without bleeding, purulent. Throat without erythema. Airway patent. NECK: Trachea midline. No JVD CARDIOVASCULAR: Regular rate and rhythm without murmurs, gallops, or rubs. RESPIRATORY: Clear to auscultation. Breath sounds equal bilaterally. No wheezes , rales, or rhonchi. GASTROINTESTINAL: Abdomen soft, non-tender, nondistended. No guarding. MUSCULOSKELETAL: Extremities without clubbing, cyanosis, or edema. No joint tenderness, effusion, or edema noted. NEUROLOGICAL: Awake and alert. Cranial nerves grossly intact. Motor and sensory grossly within normal limits. Five out of 5 muscle strength in all muscle groups. Normal speech. Laboratory Laboratory Tests Test 04/10/17 16:40 White Blood Count 5.5 Red Blood Count 3.85 Hemoglobin 10.4 Hematocrit 31.6 Mean Corpuscular Volume 82.2 Mean Corpuscular Hemoglobin 27.0 Mean Corpuscular Hemoglobin Concent 32.9 Red Cell Distribution Width 15.3 Platelet Count 154 Mean Platelet Volume 8.8 Neutrophils (%) (Auto) 64.0 Lymphocytes (%) (Auto) 26.9 Monocytes (%) (Auto) 6.6 Eosinophils (%) (Auto) 1.7 Basophils (%) (Auto) 0.8 Neutrophils # (Auto) 3.5 Lymphocytes # (Auto) 1.5 Monocytes # (Auto) 0.4 Eosinophils # (Auto) 0.1 Basophils # (Auto) 0.0 CBC Comment DIFF FINAL Differential Comment Blood Urea Nitrogen 26 Creatinine 1.38 Random Glucose 123 Calcium Level 8.6 Sodium Level 144 Potassium Level 4.0 Chloride Level 109 Carbon Dioxide Level 28.8 Anion Gap 6 Estimat Glomerular Filtration Rate 39 Total Creatine Kinase 69 Troponin I LESS THAN 0.02 Result Diagram: 04/10/17 1640 04/10/17 1640 Imaging Last Impressions Chest X-Ray 04/10/17 1639 Signed Impressions: Service Date/Time: March 16:52 - CONCLUSION: The lungs are clear. MD Gwendolyn Melendrez VTE Risk Assessment [place] VTE Risk Assessment: No/Low Risk (score <= 1) Caprini Risk Assessment Model Point Value = 1 Point Value = 2 Point Value = 3 Point Value = 5 Age 41-60 Minor surgery BMI > 25 kg/m2 Swollen legs Varicose veins or History of unexplained or recurrent spontaneous Oral contraceptives or hormone replacement Sepsis (< 1 month) Serious lung disease, including pneumonia (< 1 month) Abnormal pulmonary function Acute myocardial infarction Congestive heart failure (< 1 month) History of inflammatory bowel disease Medical patient at bed rest Age 61-74 Arthroscopic surgery Major open surgery (> 45 min) Laparoscopic surgery (> 45 min) Malignancy Confined to bed (> 72 hours) Immobilizing plaster cast Central venous access Age >= 75 History of VTE Family history of VTE Factor V Leiden Prothrombin [id number] Lupus anticoagulant Anticardiolipin antibodies Elevated serum homocysteine Heparin-induced thrombocytopenia Other congenital or acquired thrombophilia Stroke (< 1 month) Elective arthroplasty Hip, pelvis, or leg fracture Acute spinal cord injury (< 1 month) Prophylaxis Regimen Total Risk Factor Score Risk Level Prophylaxis Regimen 0-1 Low Early ambulation 2 Moderate Order ONE of the following: *Sequential Compression Device (SCD) *Heparin 5000 units SQ BID 3-4 Higher Order ONE of the following medications: *Heparin 5000 units SQ TID *Enoxaparin/Lovenox 40 mg SQ daily (WT < 150 kg, CrCl > 30 mL/min) *Enoxaparin/Lovenox 30 mg SQ daily (WT < 150 kg, CrCl > 10-29 mL/min) *Enoxaparin/Lovenox 30 mg SQ BID (WT < 150 kg, CrCl > 30 mL/min) AND/OR *Sequential Compression Device (SCD) 5 or more Highest Order ONE of the following medications: *Heparin 5000 units SQ TID (Preferred with Epidurals) *Enoxaparin/Lovenox 40 mg SQ daily (WT < 150 kg, CrCl > 30 mL/min) *Enoxaparin/Lovenox 30 mg SQ daily (WT < 150 kg, CrCl > 10-29 mL/min) *Enoxaparin/Lovenox 30 mg SQ BID (WT < 150 kg, CrCl > 30 mL/min) AND *Sequential Compression Device (SCD) Assessment and Plan Assessment and Plan This is a 61-year-old female with past medical history significant for hypertension, diabetes, hyperlipidemia, pancreatitis, ADD, and alcohol abuse. Patient presented to emergency department with complaints of chest pain which began this morning and since resolved. Reports she had chest pain that began around 3pm this afternoon after arguing with her boyfriend. Chest pain r/o ACS -Admit to observation to rule out ACS -Initial troponin negative continue following serial enzymes -Initial EKD reviewed, NSR w/ HR 73, follow serial EKGs - Chest x-ray negative -Aspirin 325 mg now -Monitor for ongoing chest pain - SL Nitro if needed Hypertension, uncontrolled -Patient noncompliant with medications, no established PCP, homeless -She is aware that she is on Norvasc 10 mg daily, restart -10 mg of Norvasc now -Continue monitoring blood pressure trend Diabetes II -Accu-Cheks with insulin sliding scale coverage as needed -Hold off on metformin secondary to decreased renal function -Discussed with patient the importance of glycemic control as well as discontinuing Dr. Cardenas Recurrent pancreatitis -Patient reports she takes a certain medication for her pancreas, discussed with nurse to try and obtain medication list from pharmacy. -No abdominal complaints at the moment, nausea or vomiting. Alcohol abuse -Last drink earlier today, discussed with patient the importance of alcohol cessation, AA - CIWA -Close monitoring for DTs and seizures Acute kidney injury on CKD -Prior labs from ER visit on 02/21/17 with creatinine of 2.34 -Current creatinine 1.38, BUN 26, GFR 39 -Discussed with patient the importance of diabetes control and blood pressure control to prevent further damage on kidneys -Recheck BMP tomorrow DVT prophylaxis-SCDs Problem Qualifiers (1) Chest pain: Qualified Codes: R07.9 - Chest pain, unspecified Roby Rudd Apr 10, 2017 18:23
[2017-04-10] MEDS ORDERED: LORazepam 2 MG TAB PO PRN (18:45)
[2017-04-10] MEDS ORDERED: FLUMAZENIL 0.5 MG/5 ML VIAL IV PUSH PRN (18:45)
[2017-04-10] MEDS ORDERED: LORazepam 2 MG/ML VIAL IV PUSH PRN ×4 (18:45)
[2017-04-10] MEDS ORDERED: LORazepam 1 MG TAB PO PRN (18:45)
[2017-04-10 18:59] VITALS: BP 148/83; PULSE 72; RESP 18; O2SAT 96
[2017-04-10] MEDS ORDERED: NITROGLYCERIN 0.4 MG SL 25 TABS/BTL SL PRN (19:00)
[2017-04-10] MEDS ORDERED: ONDA4TAB15 PO (19:10)
[2017-04-10] MEDS ORDERED: HYOS1TAB9 SL (19:10)
[2017-04-10] MEDS ORDERED: ONDA4TAB7 SL (19:10)
[2017-04-10 20:06] VITALS: BP 179/90; PULSE 66; RESP 20; TEMP 98.9; O2SAT 95
[2017-04-10] MEDS ORDERED: SODIUM CHLORIDE 0.9% FLUSH 10 ML FLUSH IV FLUSH SCH (21:00)
[2017-04-10] MEDS ORDERED: INSULIN ASPART SUPPLEMENTAL SCALE SQ SCH (21:00)
[2017-04-10 21:09] VITALS: PULSE 70
[2017-04-10 22:59] VITALS: BP 159/83; PULSE 67; RESP 20; TEMP 99.3; O2SAT 95
[2017-04-10 23:05] LABS: TROPONIN I LESS THAN 0.02 NG/ML (0.02-0.05)
[2017-04-11 03:59] VITALS: PULSE 63
[2017-04-11 05:49] LABS: AUTOMATED NEUTROPHIL # 3.9 TH/MM3 (1.8-7.7); BASOPHIL # 0.1 TH/MM3 (0-0.2); BASOPHIL % 1.6 % (0.0-2.0); EOSINOPHIL # 0.1 TH/MM3 (0-0.4); EOSINOPHIL % 1.6 % (0.0-4.0); HEMATOCRIT 33.7 % (35.0-46.0); HEMOGLOBIN 11.2 GM/DL (11.6-15.3); LYMPH % 27.9 % (9.0-44.0); LYMPHOCYTE # 1.8 TH/MM3 (1.0-4.8); MEAN CELL VOLUME 80.4 FL (80.0-100.0); MEAN CORPUSCULAR HEMOGLOBIN 26.8 PG (27.0-34.0); MEAN CORPUSCULAR HGB CONC 33.4 % (32.0-36.0); MONO % 7.8 % (0.0-8.0); MONOCYTE # 0.5 TH/MM3 (0-0.9); NEUT % 61.1 % (16.0-70.0); PLATELET COUNT 155 TH/MM3 (150-450); RED BLOOD COUNT 4.19 MIL/MM3 (4.00-5.30); RED CELL DISTRIBUTION WIDTH 15.9 % (11.6-17.2); WHITE BLOOD COUNT 6.4 TH/MM3 (4.0-11.0)
[2017-04-11 06:14] LABS: BICARBONATE 30.2 MEQ/L (21.0-32.0); BLOOD UREA NITROGEN 29 MG/DL (7-18); CHLORIDE 107 MEQ/L (98-107); CREATININE 1.32 MG/DL (0.50-1.00); GLOMERULAR FILTRATION RATE 41 ML/MIN (>89); GLUCOSE,RANDOM 106 MG/DL (74-106); SODIUM (NA) 142 MEQ/L (136-145)
[2017-04-11 06:15] LABS: TROPONIN I LESS THAN 0.02 NG/ML (0.02-0.05)
[2017-04-11 07:33] VITALS: BP 168/83; PULSE 69; RESP 18; TEMP 98; O2SAT 92
[2017-04-11] MEDS ORDERED: ASPIRIN EC 325 MG TABEC PO SCH (09:00)
--- NOTE | 2017-04-11 13:49 | EKG ---
Date Performed: 04/10/2017 Time Performed: 17:01:52 PTAGE: 61 years EKG: Sinus rhythm BORDERLINE RIGHT AXIS DEVIATION BORDERLINE ECG NO PREVIOUS TRACING 04/10/2017 [id number] DOCTOR: Tanya Almaraz Interpretating Date/Time 04/11/2017 13:46:46
--- NOTE | 2017-04-11 14:37 | EKG ---
Date Performed: 04/10/2017 Time Performed: 22:53:42 PTAGE: 61 years EKG: Sinus rhythm WITH OCCASIONAL SUPRAVENTRICULAR PREMATURE COMPLEXES BORDERLINE ECG PREVIOUS TRACING : 04/10/2017 17.01 Since the prior tracing, there has been no significant lr DOCTOR: Tanya Almaraz Interpretating Date/Time 04/11/2017 14:34:44
--- NOTE | 2017-04-11 14:38 | EKG ---
Date Performed: 04/11/2017 Time Performed: 04:51:25 PTAGE: 61 years EKG: Sinus rhythm NORMAL ECG PREVIOUS TRACING : 04/10/2017 22.53 Since the prior tracing, there has been no significant lr DOCTOR: Tanya Almaraz Interpretating Date/Time 04/11/2017 14:35:01
== END 2017-04-11 08:11 | disposition left against medical advice (07) ==
LOC: NEPE 16:18 → NEDA 18:08 → NEPFCDU 19:25
PROVIDERS: ADMIT Family Medicine; ATTEND Family Medicine
DX: R07.9 Chest pain, unspecified (principal); I12.9 Hypertensive chronic kidney disease with stage 1 through stage 4 chronic kidney disease, or unspecified chronic kidney disease; E11.22 Type 2 diabetes mellitus with diabetic chronic kidney disease; N18.9 Chronic kidney disease, unspecified; N17.9 Acute kidney failure, unspecified; E78.5 Hyperlipidemia, unspecified; I49.3 Ventricular premature depolarization; K86.1 Other chronic pancreatitis; F10.10 Alcohol abuse, uncomplicated; F32.9 Major depressive disorder, single episode, unspecified; Z79.899 Other long term (current) drug therapy; Z87.891 Personal history of nicotine dependence; Z91.14 Patient's other noncompliance with medication regimen; Z59.0 Homelessness
CPT/HCPCS: 71046; 80048; 82550; 82948; 84484; 85025; 93005; 99285; G0378